=== PATIENT | female | born 1985 | race Two or more races ===

== ENCOUNTER 2016-12-24 08:41 | Observation (INO) | payer MEDICAID ==
[~2016-12-24] VITALS: Ht 162.6 cm; Wt 55.3 kg
[2016-12-24 09:20] LABS: Basophils # (auto) 0 uL; Basophils % (auto) 0.2 % (0.0-2.0); Eosinophils # (auto) 0 uL; Eosinophils % (auto) 0.8 % (0.0-7.0); Hematocrit 42.5 % (36.0-46.0); Hemoglobin 14.6 g/dL (12.2-16.2); Lymphocytes # (auto) 1.2 uL; Lymphocytes % (auto) 18.9 % (10.0-50.0); Mean Corpuscular Hemoglobin 30.4 pg (28.0-32.0); Mean Corpuscular Hgb Conc. 34.5 g/dL (32.0-36.0); Mean Corpuscular Volume 88.3 fL (80.0-100.0); Mean Platelet Volume 8.9 fL (7.4-10.4); Monocytes # (auto) 0.4 uL; Monocytes % (auto) 5.9 % (0.0-12.0); Neutrophils # (auto) 4.7 uL; Neutrophils % (auto) 74.2 % (37.0-80.0); Platelet Count (auto) 239 10^3/uL (140-450); Red Cell Distribution Width 12.6 % (11.6-16.0); White Blood Cell 6.4 10^3/uL (4.4-10.8)
[2016-12-24] MEDS ORDERED: SODIUM CHLORIDE 0.9% 1,000 ML IV ONE (09:28)
[2016-12-24 09:29] LABS: Urine Bilirubin Negative (Negative); Urine Blood Negative /uL (Negative); Urine Color Yellow (Yellow); Urine Glucose Normal (Normal); Urine Ketone 2+ (Negative); Urine Mucus FEW (None Seen); Urine Nitrite Negative (Negative); Urine RBC 1 /hpf (0 - 4); Urine Squamous Epithelial Cell FEW /hpf (<5); Urine Urobilinogen Normal (Negative)
[2016-12-24 09:52] LABS: Calcium 8.8 mg/dL (8.5-10.1); Potassium 3.6 mmol/L (3.5-5.1)
[2016-12-24 09:54] LABS: BUN/Creatinine Ratio 22.6
[2016-12-24 09:57] LABS: Bilirubin, Total 0.4 mg/dL (0.2-1.0); Total Protein 7.5 g/dL (6.4-8.2)
[2016-12-24 10:44] VITALS: BP 114/76
== END 2016-12-24 11:52 | disposition home or self-care (01) | DRG 566 ==
LOC: ER 08:41 → OVERFLOW 09:32 → ER 11:52
PROVIDERS: ADMIT Emergency Medicine; ATTEND Emergency Medicine
DX: O21.9 Vomiting of pregnancy, unspecified (principal); O26.891 Other specified pregnancy related conditions, first trimester; R19.7 Diarrhea, unspecified; Z3A.09 9 weeks gestation of pregnancy
CPT/HCPCS: 36415; 80053; 81001; 84702; 85025; 96360; 99281; G0378; J7030

== ENCOUNTER 2018-07-30 10:24 | Emergency (ER) | payer MEDICAID ==
[~2018-07-30] VITALS: Ht 162.6 cm; Wt 58.1 kg
[2018-07-30 11:29] VITALS: BP 122/84
== END 2018-07-30 12:51 | disposition home or self-care (01) ==
LOC: ER 10:24
DX: J02.9 Acute pharyngitis, unspecified (principal)